=== PATIENT | female | born 1950 | race Two or more races ===

== ENCOUNTER → 2017-03-02 | Outpatient (CLI) | payer MEDICARE, MEDICAID ==
[~2017-03-02] MED LIST: ASPI-556 PO; DESV50TA; DIAZ5 PO; SERT25TA
== END | disposition home or self-care (01) ==
LOC: RADMN 13:13
PROVIDERS: ATTEND Specialist
DX: M50.122 Cervical disc disorder at C5-C6 level with radiculopathy (principal); M40.40 Postural lordosis, site unspecified; M48.02 Spinal stenosis, cervical region; M12.88 Other specific arthropathies, not elsewhere classified, other specified site; M43.16 Spondylolisthesis, lumbar region
CPT/HCPCS: 72141; 72148

== ENCOUNTER → 2017-07-19 | Outpatient (CLI) | payer MEDICARE, MEDICAID | END | disposition home or self-care (01) | LOC: RADPV 10:27 | PROVIDERS: ATTEND Internal Medicine Nephrology | DX: M47.898 Other spondylosis, sacral and sacrococcygeal region (principal) | CPT/HCPCS: 72220 ==

== ENCOUNTER → 2017-10-18 | Outpatient (CLI) | payer MEDICARE, MEDICAID | END | disposition home or self-care (01) | LOC: RADPV 10:40 | PROVIDERS: ATTEND Legal Medicine | DX: R94.31 Abnormal electrocardiogram [ECG] [EKG] (principal) | CPT/HCPCS: 93306 ==

== ENCOUNTER 2020-05-23 12:04 | Emergency (ER) | payer MEDICARE, MEDICAID ==
[~2020-05-23] VITALS: Ht 157.5 cm; Wt 61.4 kg
[2020-05-23 12:07] VITALS: BP 146/77
== END 2020-05-23 13:30 | disposition left against medical advice (07) ==
LOC: EMS 12:08
DX: R33.9 Retention of urine, unspecified (principal); Z53.21 Procedure and treatment not carried out due to patient leaving prior to being seen by health care provider